=== PATIENT | female | born 1985 | race Caucasian/White ===

== ENCOUNTER 2017-08-24 07:19 | Emergency (ER) | payer SELFPAY ==
[~2017-08-24] VITALS: Ht 157.5 cm; Wt 50.0 kg
[2017-08-24 07:28] VITALS: BP 137/95
== END 2017-08-24 07:30 | disposition left against medical advice (07) ==
LOC: EMS 07:21
DX: Z00.00 Encounter for general adult medical examination without abnormal findings (principal); Z53.21 Procedure and treatment not carried out due to patient leaving prior to being seen by health care provider